=== PATIENT | male | born 2000 | race Caucasian/White ===

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

== ENCOUNTER 2019-06-15 08:44 | Emergency (ER) | payer OTHER ==
[~2019-06-15] VITALS: Ht 167.6 cm; Wt 84.2 kg
[~2019-06-15 08:44] MED LIST: BENT10CA PO; ZOFR4TAB14 PO
[2019-06-15 09:48] LABS: INFLUENZA A AMPLIFICATION NEGATIVE (NEGATIVE); INFLUENZA B AMPLIFICATION NEGATIVE (NEGATIVE)
[2019-06-15] MEDS ORDERED: ONDANSETRON 4 MG ORAL DISINTEGRATING TAB (Q0162 PER 1MG) PO ONE (11:15)
[2019-06-15 12:13] VITALS: BP 108/69
[2019-06-15] MEDS ORDERED: ONDA4TAB6 PO (12:20)
== END 2019-06-15 12:31 | disposition home or self-care (01) ==
LOC: M ED 08:44
DX: R11.2 Nausea with vomiting, unspecified (principal); R19.7 Diarrhea, unspecified; F17.218 Nicotine dependence, cigarettes, with other nicotine-induced disorders
CPT/HCPCS: 87502; 99283; Q0162

== ENCOUNTER 2019-06-20 12:02 | Inpatient (IN) | payer OTHER ==
[~2019-06-20] VITALS: Ht 167.6 cm; Wt 78.2 kg
[~2019-06-20 12:02] MED LIST changes: +ONDA4TAB6 PO
[2019-06-20] MEDS ORDERED: IBUPROFEN 600 MG TAB PO ONE (12:45)
[2019-06-20 13:05] LABS: INFLUENZA A AMPLIFICATION NEGATIVE (NEGATIVE); INFLUENZA B AMPLIFICATION NEGATIVE (NEGATIVE)
[2019-06-20] MEDS ORDERED: NS 1,000 ML IV ONE (13:30)
[2019-06-20 13:41] LABS: BASO # 0.1 10^3/uL (0.0-0.2); BASO % 0.2 % (0.0-1.0); HEMATOCRIT 44.9 % (42.0-52.0); LYMPH # 0.7 10^3/uL (1.5-5.0); LYMPH % 2.3 % (24.0-44.0); MEAN CORPUSCULAR HEMOGLOBIN 29.3 pg (27.0-33.0); MEAN CORPUSCULAR HGB CONC 35.6 g/dl (32.0-36.5); MEAN CORPUSCULAR VOLUME 82.2 fl (80.0-96.0); MONO # 0.6 10^3/uL (0.0-0.8); NEUTROPHILS % 94.8 % (36.0-66.0); PLATELET COUNT, AUTOMATED 268 10^3/uL (150-450); RED BLOOD COUNT 5.46 10^6/uL (4.30-6.10); WHITE BLOOD COUNT 29.6 10^3/uL (4.0-10.0)
--- NOTE | 2019-06-20 13:42 | REP ---
Clinical: Cough and shortness of breath. Technique: PA and lateral. Comparison: 11/22/2017. Findings: Diffuse bilateral infiltrates compatible with multifocal pneumonia. Mediastinum and cardiac silhouette normal. No effusion. No pneumothorax. Skeletal structures intact. Impression: Multifocal pneumonia. Electronically Signed by Deandre Fisher MD 06/20/2019 01:33 P
[2019-06-20 14:02] LABS: BLOOD UREA NITROGEN 11 MG/DL (7-18); CALCIUM LEVEL 9.6 MG/DL (8.5-10.1); CARBON DIOXIDE LEVEL 24 MEQ/L (21-32); CHLORIDE LEVEL 99 MEQ/L (98-107); CREATININE FOR GFR 1.03 MG/DL (0.70-1.30); GLUCOSE, FASTING 93 MG/DL (70-100); POTASSIUM SERUM 3.7 MEQ/L (3.5-5.1); SODIUM LEVEL 133 MEQ/L (136-145)
[2019-06-20 14:13] LABS: MONO SCRN NEGATIVE (NEGATIVE)
[2019-06-20] MEDS ORDERED: LevoFLOXacin IV 750 MG in IV 1 EA IV ONE (15:30)
[2019-06-20] MEDS: ACETAMINOPHEN TAB 650MG DOSE (2X325MG) PO PRN (16:53)
--- NOTE | 2019-06-20 17:05 | HPEPDOC ---
General Date of Admission 06/20/2019 Date of Service: Jun 20, 2019 Attending Physician: TY MCCAULEY MD Chief Complaint The patient is a 18-year-old male admitted with a reason for visit of Cold Symptoms. Source: Patient, Family Exam Limitations: No limitations Timing/Duration: 24 hours (fever), Day(s) (SOB, congestion, FARLEY, cough) Severity: Severe Associated Symptoms: Cough, Diaphoresis, Fever, Chills, Headaches, Loss of appetite, Nausea, Vomiting, Shortness of breath History of Present Illness 18 yo active member of the , young man, with no significant past medical history except being a smoker, who presents with up to 1 week symptoms of initial cough, rhinorrhea, sore throat and congestions, with progressive muscle aches, and most recently FARLEY and SOB at rest and this morning woke up drenched with edgar fever, chills and headache and developed nausea and emesis prompting him to present to the ED. In the ED he arrive normotensive but with a fever to 101.8 and tachycardia to 136 while visibly flushed, diaphoretic, dsypneic with tachypnea. He was hypoxemic to mid 80s on room air and was placed on 2L NC. Studies were notable f or leukocytosis to 29.6, Hgb 16, HCt 44.9, Na 133, Cr 1.03, negative flu, monospot and respiratory viral panel, while a CXR showed multifocal PNA. His history is negative for recent travel, last training was in [place] months ago but otherwise does spend significant time outdoors. He was given 1L NS, ibuprofen and later tylenol for his fever and blood cultures were drawn before he was given empiric levaquin. Home Medications No Active Prescriptions or Reported Meds Allergies Coded Allergies: No Known Allergies (Unverified , 06/15/19) Past Medical History Medical History Smoking Surgical History None Family History Significant Family History: No pertinent family hx Social History * Smoker: Denies, current smoker Alcohol: Denies Drugs: denies Recent Travel/Sick Contacts: Denies: Recent travel, Recent sick contacts Psychosocial History: No pertinent psych hx A-FIB/CHADSVASC A-FIB History Current/History of A-Fib/PAF?: No Current PO Anticoag Therapy: No Age/Risk Factor Scoring CHADSVASC: CHADSVASC Response (Comments) Value Age Risk Factor Age < 65 years old 0 Gender Risk Factor Male 0 Hx of CHF No 0 Hx of HTN No 0 Hx of Stroke/TIA/or VTE No 0 Hx of Diabetes No 0 Hx of Vascular Disease No 0 Total 0 Treatment Treatment ordered: NONE Reason Anticoagulant not given: Not indicated/[id number] Review of Systems Constitutional: Reports: Chills, Fever, Malaise Eyes: Denies: Pain, Vision change ENT: Denies: Head Aches, Ear Pain, Dysphagia Skin: Denies: Rash, Lesions, Breakdown Pulmonary: Reports: Dyspnea, Cough; Denies: Pleuritic Chest Pain Cardiovascular: Denies: Chest Pain, Palpitations, Orthopnea, Paroxysmal Noc. Dyspnea, Lt Headedness Gastrointestinal: Reports: Nausea, Vomiting, Diarrhea; Denies: Abdominal Pain, Constipation, Melena, Hematochezia Genitourinary: Denies: Dysuria, Frequency, Incontinence, Retention Hematologic: Denies: Bruising, Bleeding Excessively Endocrine: Denies: Polydipsia, Polyphagia, Polyuria, Heat Intolerance, Cold Intolerance, Other Endocrine Sx Musculoskeletal: Denies: Neck Pain, Back Pain, Joint Pain, Muscle Pain, Spasms Neurological: Denies: Weakness, Numbness, Change in speech, Confusion Psych: Reports: Mood Normal; Denies: Depression, Memory Issues Physical Examination General Exam: Positive: Alert, Cooperative, Moderate Distress, Other (Looks flushed and acutely ill) Eye Exam: Positive: PERRLA, Conjunctiva & lids normal, EOMI; Negative: Sclera icteric ENT Exam: Positive: Atraumatic, Mucous membr. moist/pink, Pharynx Normal Neck Exam: Positive: Supple; Negative: JVD, thyromegaly Chest Exam: Positive: Clear to auscultation, Normal air movement, Other (significantly tachypneic) Heart Exam: Positive: Tachycardic, Normal S1, Normal S2; Negative: Gallops, Murmurs, Rubs Telemetry: Positive: Sinus, Tachycardia Abdomen Exam: Positive: Normal bowel sounds, Soft; Negative: Tenderness, Hepatospenomegaly Extremity Exam: Positive: Normal pulses; Negative: Clubbing, Cyanosis, Edema Skin Exam: Positive: Nl turgor and temperature, Other skin issue (flushed, drenching in sweat); Negative: Breakdown, Lesion Neuro Exam: Positive: Normal Speech, Strength at 5/5 X4 ext, Cranial Nerves 3- 12 NL Psych Exam: Positive: Mental status NL, Mood NL, Oriented x 3 Vital Signs Vital Signs Date Time Temp Pulse Resp B/P (MAP) Pulse Ox O2 Delivery O2 Flow Rate FiO2 06/20/19 15:45 101 22 94 Nasal Cannula 2.0 06/20/19 15:30 129/59 (82) 06/20/19 14:06 100.9 Laboratory Data Labs 24H Laboratory Tests 2 06/20/19 12:30: Influenza Type A (RT-PCR) NEGATIVE, Influenza Type B (RT-PCR) NEGATIVE 06/20/19 13:28: Immature Granulocyte % (Auto) 0.7, Neutrophils (%) (Auto) 94.8H, Lymphocytes (%) (Auto) 2.3L, Monocytes (%) (Auto) 2.0, Eosinophils (%) (Auto) 0.0, Basophils (%) (Auto) 0.2, Neutrophils # (Auto) 28.0H, Lymphocytes # (Auto) 0.7L, Monocytes # (Auto) 0.6, Eosinophils # (Auto) 0.0, Basophils # (Auto) 0.1, Nucleated Red Blood Cells % (auto) 0.0, Anion Gap 10, Calcium Level 9.6, Monoscreen NEGATIVE 06/20/19 14:50: POC Lactate (Misc Panel) 1.25 CBC/BMP Laboratory Tests 06/20/19 13:28 Microbiology Microbiology 06/20/19 Blood Culture, Received Pending 06/20/19 Blood Culture, Received Pending 06/20/19 Group A Streptococcus Screen (RANJANA), Received Pending 06/20/19 Respiratory Virus Panel (PCR) (RANJANA) - Final, Complete Assessment/Plan 18 yo man whose medical history is only significant for active smoking, active member of the who presents with ~1 week of URI symptoms that progressed to incessant cough, myalgias, nausea, emesis, diarrhea, edgar fevers and shortness of breath and found to have multifocal PNA now placed on empiric levaquin. Sepsis 2/ multifocal PNA: with fever, leukocytosis, tachycardia, tachypnea, CXR with edgar PNA -continue empiric levaquin 750mg IV Q 24h -s/p 2L NS in the ED with improvement in tachycardia -supplemental O2 to goal 92% -q4hPRN duonebs for SOB or coughing -follow up BCx -sputum culture -urine for Strep and legionella -check mycoplasma as well -Incentive spirometry -daily CBC, BMP -tylenol for fever PRN -admit to PCU with severe sepsis Smoking: -cessation counselling -declined patch N/V/D: likely consequence of acute severe infection -monitor for now without abdominal pain with benign examination -if persistent will send acute diarrhea panel -zofran PRN for nausea DVT ppx: lovenox 40 QD Diet: regular Plan / VTE VTE Prophylaxis Ordered?: Yes TY MCCAULEY MD Jun 20, 2019 17:05
[2019-06-20] MEDS: IPRATROPIUM 0.5MG/ALBUTEROL 2.5MG INH SOL UD 3ML (DUONEB)(J7620) INH PRN ×2 (17:26→22:28)
[2019-06-20 20:00] VITALS: BP 144/74
[2019-06-21] VITALS (7 sets, daily range): BP systolic 119–132; BP diastolic 58–68; O2SAT 94–95
[2019-06-21] MEDS: ACETAMINOPHEN TAB 650MG DOSE (2X325MG) PO PRN ×4 (01:09→19:59)
[2019-06-21] MEDS: IPRATROPIUM 0.5MG/ALBUTEROL 2.5MG INH SOL UD 3ML (DUONEB)(J7620) INH PRN ×3 (02:40→19:59)
[2019-06-21 06:32] LABS: HEMATOCRIT 43.6 % (42.0-52.0); HEMOGLOBIN 15.1 g/dl (13.5-17.5); MEAN CORPUSCULAR HEMOGLOBIN 28.9 pg (27.0-33.0); MEAN CORPUSCULAR HGB CONC 34.6 g/dl (32.0-36.5); MEAN CORPUSCULAR VOLUME 83.4 fl (80.0-96.0); PLATELET COUNT, AUTOMATED 252 10^3/uL (150-450); RED BLOOD COUNT 5.23 10^6/uL (4.30-6.10); WHITE BLOOD COUNT 20.8 10^3/uL (4.0-10.0)
[2019-06-21] MEDS: ONDANSETRON 4MG/2ML VIAL (J2405) IV PRN (06:36)
[2019-06-21 06:51] LABS: BLOOD UREA NITROGEN 9 MG/DL (7-18); CALCIUM LEVEL 8.9 MG/DL (8.5-10.1); CARBON DIOXIDE LEVEL 26 MEQ/L (21-32); CHLORIDE LEVEL 102 MEQ/L (98-107); CREATININE FOR GFR 0.98 MG/DL (0.70-1.30); GLUCOSE, FASTING 97 MG/DL (70-100); MAGNESIUM LEVEL 1.8 MG/DL (1.8-2.4); POTASSIUM SERUM 3.6 MEQ/L (3.5-5.1); SODIUM LEVEL 136 MEQ/L (136-145)
[2019-06-21] MEDS: ENOXAPARIN 40 MG/0.4 ML SYRINGE (J1650) SC SCH (09:00)
[2019-06-21 09:18] LABS: ALBUMIN 3.3 GM/DL (3.2-5.2); ALT/SGPT 21 U/L (12-78); BILIRUBIN,DIRECT 0.5 MG/DL (0.0-0.2); BILIRUBIN,TOTAL 1.3 MG/DL (0.2-1.0); LIPASE 38 U/L (73-393); TOTAL PROTEIN 8.1 GM/DL (6.4-8.2)
--- NOTE | 2019-06-21 09:38 | PHACANCOPD ---
PHARMACY VANCOMYCIN DOSING Pt Demographics Demographics Patient Age:18 , Weight:80.400 , Gender: male Adjusted Body Weight Date: 06/21/19, Adjusted Body Weight: Kg Events Past 24 Hours Events Past 24 Hours: YES: Fever; NO: Dialysis, Diuretic Therapy, Change in CrCl, Elevation in WBC, Pending Diagnostics, Pending Procedures, Other Vancomycin Vancomycin indication: pneumonia with sepsis Vancomycin Target Ranges: 15-20 mcg/ml Vancomycin Load Y/N: Yes Load Dose Date Time Vancomycin Load Dose: 1000mg Date: 06/21 Time: 10:00 Vancomycin Dose Date: 06/21/19. Current Vancomycin Dose: [1g IV q8h @14] Intermittent Dosing?: No Labs Labs Item Value Date Time White Blood Count 29.6 10^3/uL H 06/20/19 1328 White Blood Count 20.8 10^3/uL H 06/21/19 0539 Creatinine 1.03 MG/DL 06/20/19 1328 Creatinine 0.98 MG/DL 06/21/19 0539 Vital Signs Label Value Date Time Patient Temperature 100.5 degrees F 06/21/19 0000 Temperature Source Oral 06/21/19 0000 Patient Temperature 100.6 degrees F 06/21/19 0749 Temperature Source Oral 06/21/19 0749 Micro Microbiology 06/20/19 Blood Culture, Received Pending 06/20/19 Blood Culture, Received Pending 06/20/19 Group A Streptococcus Screen (RANJANA), Received Pending 06/20/19 Respiratory Virus Panel (PCR) (RANJANA) - Final, Complete 06/20/19 Gram Stain - Final, Complete 06/20/19 Sputum Culture - Final, Complete Creatinine Clearance Date:06/21/19. Creatinine Clearance: [>100 ml/min]. Pending Labs Vanco trough scheduled 06/22 @13:00 Assessment and Plan Maintaining Current Dose?: Yes Reason for dose change: No Dose Change Pharmacist Note Pharmacist Note Date: 06/21/19. Pharmacist note: pt has been changed to Zosyn and Vancomycin for CAP with sepsis. He had previously received Levaquin IV 750mg x1 dose ~18 hours ago. Sputum culture is poor quality, C&S is pending. Blood cultures and strep screen are pending. He has a very limited medical hx at our facility. I have started him on vancomycin 1g at 10am, followed by 1g IV q8h dosing to begin ~4 hours later. I have a trough scheduled tomorrow afternoon. We will continue to monitor and make adjustments as necessary. Saad Key.D. Jun 21, 2019 09:38
--- NOTE | 2019-06-21 09:49 | REP ---
Clinical: Abdominal pain with nausea and vomiting. Sepsis. Technique: Axial noncontrast images from the lung bases to the pubic symphysis with coronal and sagittal re-formations. Findings: Lung bases demonstrate multifocal pneumonia. Liver, spleen, pancreas, gallbladder, bilateral adrenal glands and kidneys are normal. The enteric system is without obstruction or acute inflammatory process. Normal terminal ileum and appendix are identified in the right lower quadrant. Pelvis demonstrates normal bladder and age appropriate prostate/seminal vesicles. No ascites. No free air. No adenopathy. Abdominal aorta and without aneurysm. Musculoskeletal structures are intact. Impression: 1. Lung bases demonstrate multifocal pneumonia. 2. No acute abdominopelvic pathology appreciated. Electronically Signed by Deandre Fisher MD 06/21/2019 09:40 A
[2019-06-21] MEDS ORDERED: VANCOMYCIN HCL 1,000 MG, VIAL MATE ADAPTER 1 EACH in D5W 250 ML IV ONE (10:00)
[2019-06-21] MEDS: PIPERACILLIN/TAZOBACTAM SOD 3.375 GM in D5W MINI-BAG PLUS 50 ML IV SCH ×3 (10:02→20:23)
--- NOTE | 2019-06-21 11:53 | IPNPDOC ---
Text Note Date of Service The patient was seen on 06/21/19. NOTE Subjective: -continues to be febrile and defervesces with Tylenol -Persistent N/V with emesis this AM with some abdominal discomfort -Now on 4L from 2L Objective: General: continues to look acutely ill and is still flushed Eye: PERRLA, EOMI, anicteric ENT: MMM, clear posterior oropharynx without evidence of exudates Neck: Supple, no JVD or palpable thyromegaly Chest Exam: Moving air well, no wheezing, no edgar crackles still at this time, tachypneic speaking in short sentences Heart Exam: Tachycardic, regular rhythm, no murmurs Telemetry: Sinus, Tachycardia Abdomen Exam: Normal bowel sounds, Soft, mild RUQ TTP, no hepatosplenomegaly Extremities: WWP, no edema Skin Exam: Diaphoretic Nl turgor, no rashes, no erythema or lesions Neuro Exam: Normal Speech, Strength at 5/5 X4 ext, Cranial Nerves 3-12 NL Psych Exam: Oriented x 3 labs: WBC downtrended to 20.8. BMP wnl. Lipase is 38, LFTs are wnl. Reviewed Assessment: 18 yo man whose medical history is only significant for active smoking, active member of the who presented with ~1 week of URI symptoms that progressed to incessant cough, myalgias, nausea, emesis, diarrhea, edgar fevers and shortness of breath and found to have multifocal PNA now placed on empiric van/zosyn with pending blood and sputum cultures. Sepsis 2/2 multifocal PNA: with fever, leukocytosis, tachycardia, tachypnea, CXR with edgar PNA -switched to vanc/piptazo this AM after sputum showed varied organisms including GPCs in clusters, MRSA PCR ordered -supplemental O2 to goal 92% -q4hPRN duonebs for SOB or coughing -follow up BCx -follow up sputum culture -follow up urine for Strep and legionella -follow up mycoplasma as well -Incentive spirometry -daily CBC, BMP -tylenol for fever PRN Smoking: -cessation counselling -declined patch N/V/D: likely consequence of acute severe infection -monitor for now without abdominal pain with benign examination -No diarrhea -zofran PRN for nausea -s/p CT A/P without edgar abdominal pathology, lipase and LFTs wnl DVT ppx: lovenox 40 QD Diet: regular VS,Fishbone, I+O VS, Fishbone, I+O Laboratory Tests 06/20/19 13:28 06/21/19 05:39 Vital Signs Date Time Temp Pulse Resp B/P (MAP) Pulse Ox O2 Delivery O2 Flow Rate FiO2 06/21/19 07:49 100.6 06/21/19 04:00 104 20 121/58 (79) 92 Nasal Cannula 2.1 I&O- Last 24 Hours up to 6 AM 06/21/19 06:00 Intake Total 1690 ml Output Total 300 ml Balance 1390 ml TY MCCAULEY MD Jun 21, 2019 11:53
[2019-06-21] MEDS ORDERED: LevoFLOXacin IV 750 MG in IV 1 EA IV SCH (12:00)
[2019-06-21] MEDS: VANCOMYCIN HCL 1,000 MG, VIAL MATE ADAPTER 1 EACH in D5W 250 ML IV SCH ×2 (13:42→22:15)
[2019-06-21] MEDS ORDERED: SLF 3 ML SYR IV PRN (15:15)
[2019-06-21] MEDS: guaiFENesin 200 MG TAB PO SCH ×2 (16:35→20:23)
[2019-06-21] MEDS: SLF 3 ML SYR IV SCH (20:24)
[2019-06-21] MEDS: IPRATROPIUM 0.5MG/ALBUTEROL 2.5MG INH SOL UD 3ML (DUONEB)(J7620) INH SCH (23:28)
[2019-06-22] VITALS (25 sets, daily range): BP systolic 122–137; BP diastolic 55–88; O2SAT 91–99
[2019-06-22] MEDS: PIPERACILLIN/TAZOBACTAM SOD 3.375 GM in D5W MINI-BAG PLUS 50 ML IV SCH ×4 (02:16→20:41)
[2019-06-22] MEDS: ACETAMINOPHEN TAB 650MG DOSE (2X325MG) PO PRN ×3 (02:17→20:42)
[2019-06-22] MEDS: guaiFENesin 200 MG TAB PO SCH ×4 (02:17→20:42)
[2019-06-22] MEDS: ONDANSETRON 4MG/2ML VIAL (J2405) IV PRN (02:17)
[2019-06-22] MEDS: IPRATROPIUM 0.5MG/ALBUTEROL 2.5MG INH SOL UD 3ML (DUONEB)(J7620) INH SCH ×6 (03:39→23:15)
[2019-06-22] MEDS ORDERED: ISOVUE-370 76% 100ML VIAL (Q9967) As Ordered ONE (04:45)
[2019-06-22] MEDS: VANCOMYCIN HCL 1,000 MG, VIAL MATE ADAPTER 1 EACH in D5W 250 ML IV SCH (05:15)
[2019-06-22] MEDS: SLF 3 ML SYR IV SCH ×3 (05:16→20:42)
--- NOTE | 2019-06-22 05:42 | REPVR ---
PROCEDURE INFORMATION: Exam: CT Angiography Chest With Contrast Exam date and time: 06/22/2019 4:57 AM Age: 18 years old Clinical indication: Other: Desat TECHNIQUE: Imaging protocol: Computed tomographic angiography of the chest with intravenous contrast. 3D rendering: MIP and/or 3D reconstructed images were created by the technologist. Radiation optimization: All CT scans at this facility use at least one of these dose optimization techniques: automated exposure control; mA and/or kV adjustment per patient size (includes targeted exams where dose is matched to clinical indication); or iterative reconstruction. Contrast material: ISOVUE 370; Contrast volume: 100 ml; Contrast route: IV; COMPARISON: CR Chest, 2 view PA, Lat 2019-06-20 13:26 FINDINGS: Pulmonary arteries: No filling defects in the pulmonary arteries to suggest pulmonary emboli. Aorta: Unremarkable. No aortic aneurysm. No aortic dissection. Lungs: Diffuse mixed ground-glass and consolidative airspace opacities and interlobular septal thickening within the lungs. Pleural space: Unremarkable. No pneumothorax. No pleural effusion. Heart: Unremarkable. No cardiomegaly. No pericardial effusion. Liver: Enlarged low attenuating liver, evidence of hepatic steatosis. Lymph nodes: Mild mediastinal adenopathy with lymph nodes measuring to 1.2 cm short axis. Subcarinal and hilar adenopathy. Bones/joints: Unremarkable. No acute fracture. Soft tissues: Unremarkable. IMPRESSION: 1. Moderate to severe diffuse lung opacities. 2. No filling defects in the pulmonary arteries to suggest pulmonary emboli. Electronically signed by: Herbie Villatoro On 06/22/2019 05:42:06 AM
[2019-06-22 05:43] LABS: HEMATOCRIT 38.4 % (42.0-52.0); HEMOGLOBIN 13.3 g/dl (13.5-17.5); MEAN CORPUSCULAR HEMOGLOBIN 28.8 pg (27.0-33.0); MEAN CORPUSCULAR HGB CONC 34.6 g/dl (32.0-36.5); MEAN CORPUSCULAR VOLUME 83.1 fl (80.0-96.0); PLATELET COUNT, AUTOMATED 269 10^3/uL (150-450); RED BLOOD COUNT 4.62 10^6/uL (4.30-6.10); WHITE BLOOD COUNT 18.7 10^3/uL (4.0-10.0)
[2019-06-22 06:02] LABS: BLOOD UREA NITROGEN 9 MG/DL (7-18); CALCIUM LEVEL 8.7 MG/DL (8.5-10.1); CARBON DIOXIDE LEVEL 28 MEQ/L (21-32); CHLORIDE LEVEL 99 MEQ/L (98-107); CREATININE FOR GFR 0.96 MG/DL (0.70-1.30); GLUCOSE, FASTING 104 MG/DL (70-100); POTASSIUM SERUM 3.3 MEQ/L (3.5-5.1); SODIUM LEVEL 132 MEQ/L (136-145)
[2019-06-22] MEDS: IBUPROFEN 400 MG TAB PO PRN ×3 (08:19→23:31)
[2019-06-22] MEDS: ENOXAPARIN 40 MG/0.4 ML SYRINGE (J1650) SC SCH (09:49)
[2019-06-22] MEDS: methylPREDNISolone INJ 125 MG/2 ML VIAL (J2930) IV SCH ×3 (11:17→22:26)
[2019-06-22 12:59] LABS: APPEARANCE, URINE CLEAR (CLEAR); BACTERIA, URINE AUTO NEGATIVE (NEGATIVE); BILIRUBIN, URINE AUTO NEGATIVE (NEGATIVE); BLOOD, URINE BLOOD NEGATIVE (NEGATIVE); COLOR, URINE YELLOW (YELLOW); GLUCOSE, URINE (UA) AUTO NEGATIVE (NEGATIVE); KETONE, URINE AUTO 1+ mg/dL (NEGATIVE); LEUKOCYTE ESTERASE, URINE AUTO NEGATIVE (NEGATIVE); NITRITE, URINE AUTO NEGATIVE (NEGATIVE); PROTEIN, URINE AUTO 1+ mg/dL (NEGATIVE); RBC, URINE AUTO 1 /HPF (0-3); SQUAMOUS EPITHELIAL CELL UR AU 0 /HPF (0-6); WBC, URINE AUTO 3 /HPF (0-3)
[2019-06-22 13:10] LABS: SPECIFIC GRAVITY URINE AUTO >1.060 (1.002-1.035)
--- NOTE | 2019-06-22 14:49 | IPNPDOC ---
Text Note Date of Service The patient was seen on 06/22/19. NOTE Subjective: -continues to be febrile and defervesces with Tylenol/ibuprofen -had worsening hypoxemia overnight requiring NRB and this morning was on 15L. Had been refusing lovenox shots so had CTA that was negative for PE and showed the multifocal PNA. Objective: General:Looks very ill, flushed, diaphoretic, tachypneic Eye: PERRLA, EOMI, anicteric ENT: MMM, clear posterior oropharynx without evidence of exudates Neck: Supple, no JVD or palpable thyromegaly Chest Exam: Tachypneic, not able to speak in full sentences, diminished bases, upper posterior forbes with fair air movement, no edgar crackles at this time Heart Exam: Tachycardic, regular rhythm, no murmurs Telemetry: Sinus, Tachycardia Abdomen Exam: Normal bowel sounds, Soft, mild RUQ TTP, no hepatosplenomegaly Extremities: WWP, no edema Skin Exam: Diaphoretic Nl turgor, no rashes, no erythema or lesions Neuro Exam: Normal Speech, Strength at 5/5 X4 ext, Cranial Nerves 3-12 NL Psych Exam: Oriented x 3 labs: WBC downtrended to 18.7. BMP wnl. Reviewed BCx negative to date Imaging: CXR with multifocal PNA, CTA PE protocol - with no PE and diffuse multifocal GGOs Assessment: 18 yo man whose medical history is only significant for active smoking and vaping, active member of the who presented with ~1 week of URI symptoms that progressed to incessant cough, myalgias, nausea, emesis, diarrhea, edgar fevers and shortness of breath and found to have multifocal PNA now placed on empiric zosyn with pending blood and sputum cultures. Sepsis 2/2 multifocal PNA, with a history of vaping and smoking: with fever, leukocytosis, tachycardia, tachypnea, imaging with edgar PNA -cont piptazo, sputum showed varied organisms, MRSA PCR negative -supplemental O2 to goal 92% -q4hPRN duonebs for SOB or coughing -follow up BCx -follow up sputum culture -follow up urine for Strep and legionella -follow up mycoplasma as well -Incentive spirometry -daily CBC, BMP -tylenol/NSAID for fever PRN -Discussed with Dr. Alcocer (pulm) who suspected this is likely vaping related and recommended adding 80Q6 IV solumedrol given respiratory distress and severe hypoxemia Smoking: -cessation counselling -declined patch N/V/D: likely consequence of acute severe infection -monitor for now without abdominal pain with benign examination -No diarrhea -zofran PRN for nausea -s/p CT A/P without edgar abdominal pathology, lipase and LFTs were wnl DVT ppx: lovenox 40 QD Diet: regular VS,Fishbone, I+O VS, Fishbone, I+O Laboratory Tests 06/22/19 05:15 Vital Signs Date Time Temp Pulse Resp B/P (MAP) Pulse Ox O2 Delivery O2 Flow Rate FiO2 06/22/19 12:00 98.8 93 22 124/61 (82) 97 Nasal Cannula 15.0 I&O- Last 24 Hours up to 6 AM 06/22/19 06:00 Intake Total 1270 ml Output Total 1750 ml Balance -480 ml TY MCCAULEY MD Jun 22, 2019 14:49
[2019-06-22] MEDS ORDERED: POTASSIUM CHLORIDE 10 MEQ SR TABLET PO ONE (15:00)
[2019-06-23] VITALS (24 sets, daily range): BP systolic 130–142; BP diastolic 60–76; O2SAT 76–97
[2019-06-23] MEDS: guaiFENesin 200 MG TAB PO SCH ×4 (02:52→20:15)
[2019-06-23] MEDS: PIPERACILLIN/TAZOBACTAM SOD 3.375 GM in D5W MINI-BAG PLUS 50 ML IV SCH ×4 (02:52→20:15)
[2019-06-23] MEDS: IPRATROPIUM 0.5MG/ALBUTEROL 2.5MG INH SOL UD 3ML (DUONEB)(J7620) INH SCH ×6 (02:58→23:52)
[2019-06-23] MEDS: methylPREDNISolone INJ 125 MG/2 ML VIAL (J2930) IV SCH ×4 (04:19→23:20)
[2019-06-23] MEDS: SLF 3 ML SYR IV SCH ×3 (04:20→20:15)
[2019-06-23 05:38] LABS: HEMATOCRIT 40.4 % (42.0-52.0); HEMOGLOBIN 14.1 g/dl (13.5-17.5); MEAN CORPUSCULAR HEMOGLOBIN 29.1 pg (27.0-33.0); MEAN CORPUSCULAR HGB CONC 34.9 g/dl (32.0-36.5); MEAN CORPUSCULAR VOLUME 83.5 fl (80.0-96.0); PLATELET COUNT, AUTOMATED 328 10^3/uL (150-450); RED BLOOD COUNT 4.84 10^6/uL (4.30-6.10)
[2019-06-23 05:57] LABS: BLOOD UREA NITROGEN 16 MG/DL (7-18); CALCIUM LEVEL 9.7 MG/DL (8.5-10.1); CARBON DIOXIDE LEVEL 31 MEQ/L (21-32); CHLORIDE LEVEL 103 MEQ/L (98-107); CREATININE FOR GFR 0.89 MG/DL (0.70-1.30); GLUCOSE, FASTING 144 MG/DL (70-100); POTASSIUM SERUM 3.8 MEQ/L (3.5-5.1); SODIUM LEVEL 138 MEQ/L (136-145)
[2019-06-23] MEDS: ENOXAPARIN 40 MG/0.4 ML SYRINGE (J1650) SC SCH (08:22)
[2019-06-23] MEDS: ACETAMINOPHEN TAB 650MG DOSE (2X325MG) PO PRN ×3 (08:34→20:15)
[2019-06-23] MEDS: IBUPROFEN 400 MG TAB PO PRN ×3 (08:34→15:33)
[2019-06-24] VITALS (25 sets, daily range): BP systolic 130–183; BP diastolic 68–82; O2SAT 87–98
--- NOTE | 2019-06-24 01:22 | IPNPDOC ---
Text Note Date of Service The patient was seen on 06/23/19. NOTE Subjective: -Last fever was yesterday morning at 10AM, continues to feel poorly however -Stable severe hypoxemia on 15L. Objective: General:Looks very ill, flushed, diaphoretic, tachypneic Eye: PERRLA, EOMI, anicteric ENT: MMM, clear posterior oropharynx without evidence of exudates Neck: Supple, no JVD or palpable thyromegaly Chest Exam: Tachypneic, still not able to speak in full sentences, diminished bases, upper posterior forbes with fair air movement, continues to have no edgar crackles at this time Heart Exam: Tachycardic, regular rhythm, no murmurs Telemetry: Sinus, Tachycardia Abdomen Exam: Normal bowel sounds, Soft, mild RUQ TTP, no hepatosplenomegaly Extremities: WWP, no edema Skin Exam: Diaphoretic Nl turgor, no rashes, no erythema or lesions Neuro Exam: Normal Speech, Strength at 5/5 X4 ext, Cranial Nerves 3-12 NL Psych Exam: Oriented x 3 labs: WBC downtrended to 17. BMP wnl. Reviewed BCx negative, sputum with mixed asmita, MRSA negative Imaging: CXR with multifocal PNA, CTA PE protocol - with no PE and diffuse multifocal GGOs Assessment: 18 yo man whose medical history is only significant for active smoking and vaping, active member of the who presented with ~1 week of URI symptoms that progressed to incessant cough, myalgias, nausea, emesis, diarrhea, edgar fevers and shortness of breath and found to have multifocal PNA now placed on empiric zosyn with negative blood and sputum with mixed asmita per gram stain, now placed on steroids for severe hypoxemia and PNA with c/f vaping related PNA and respiratory failure. Sepsis 2/2 multifocal PNA, with a history of vaping and smoking: with fever, leukocytosis, tachycardia, tachypnea, imaging with edgar PNA -cont piptazo, sputum gramstain showed varied organisms, MRSA PCR negative -supplemental O2 to goal 92% -q4hPRN duonebs for SOB or coughing -follow up BCx -follow up sputum culture -follow up urine for Strep and legionella -follow up mycoplasma as well -Incentive spirometry -daily CBC, BMP -tylenol/NSAID for fever PRN -Discussed with Dr. Alcocer (pulm) who suspected this is likely vaping related and recommended adding 80Q6 IV solumedrol given respiratory distress and severe hypoxemia, so these were started on 06/22. Smoking: -cessation counselling -declined patch N/V/D: likely consequence of acute severe infection -monitor for now without abdominal pain with benign examination -No diarrhea -zofran PRN for nausea -s/p CT A/P without edgar abdominal pathology, lipase and LFTs were wnl DVT ppx: lovenox 40 QD Diet: regular VS,Fishbone, I+O VS, Fishbone, I+O Laboratory Tests 06/23/19 05:21 Vital Signs Date Time Temp Pulse Resp B/P (MAP) Pulse Ox O2 Delivery O2 Flow Rate FiO2 06/23/19 06:00 97 Nasal Cannula 15.0 06/23/19 04:00 97.8 79 19 142/73 (96) I&O- Last 24 Hours up to 6 AM 06/23/19 06:00 Intake Total 950 ml Output Total 950 ml Balance 0 ml TY MCCAULEY MD Jun 23, 2019 08:01
[2019-06-24] MEDS: guaiFENesin 200 MG TAB PO SCH ×4 (03:17→21:30)
[2019-06-24] MEDS: PIPERACILLIN/TAZOBACTAM SOD 3.375 GM in D5W MINI-BAG PLUS 50 ML IV SCH ×4 (03:17→21:29)
[2019-06-24] MEDS: ACETAMINOPHEN TAB 650MG DOSE (2X325MG) PO PRN ×3 (03:30→19:40)
[2019-06-24] MEDS: IPRATROPIUM 0.5MG/ALBUTEROL 2.5MG INH SOL UD 3ML (DUONEB)(J7620) INH SCH ×6 (03:56→23:55)
[2019-06-24] MEDS: methylPREDNISolone INJ 125 MG/2 ML VIAL (J2930) IV SCH ×4 (04:27→22:41)
[2019-06-24] MEDS: SLF 3 ML SYR IV SCH ×3 (04:28→21:29)
[2019-06-24 07:32] LABS: HEMATOCRIT 41.6 % (42.0-52.0); HEMOGLOBIN 13.9 g/dl (13.5-17.5); MEAN CORPUSCULAR HEMOGLOBIN 28.7 pg (27.0-33.0); MEAN CORPUSCULAR HGB CONC 33.4 g/dl (32.0-36.5); MEAN CORPUSCULAR VOLUME 85.8 fl (80.0-96.0); PLATELET COUNT, AUTOMATED 403 10^3/uL (150-450); RED BLOOD COUNT 4.85 10^6/uL (4.30-6.10); WHITE BLOOD COUNT 25.6 10^3/uL (4.0-10.0)
[2019-06-24 07:50] LABS: BLOOD UREA NITROGEN 17 MG/DL (7-18); CALCIUM LEVEL 9.5 MG/DL (8.5-10.1); CARBON DIOXIDE LEVEL 33 MEQ/L (21-32); CHLORIDE LEVEL 102 MEQ/L (98-107); CREATININE FOR GFR 0.85 MG/DL (0.70-1.30); GLUCOSE, FASTING 149 MG/DL (70-100); POTASSIUM SERUM 3.7 MEQ/L (3.5-5.1); SODIUM LEVEL 136 MEQ/L (136-145)
[2019-06-24] MEDS: ENOXAPARIN 40 MG/0.4 ML SYRINGE (J1650) SC SCH (08:22)
[2019-06-24] MEDS: BENZONATATE 100 MG CAP PO SCH ×3 (13:08→21:30)
--- NOTE | 2019-06-24 18:03 | IPNPDOC ---
Text Note Date of Service The patient was seen on 06/24/19. NOTE Subjective: -Afebrile -Os requirement now coming down, now on 8L this afternoon -This morning reporting feeling better, had a good meal yesterday for the first time in a while, unfortunately still having a violent cough Objective: General:Looks very ill, flushed, diaphoretic, tachypneic Eye: PERRLA, EOMI, anicteric ENT: MMM, clear posterior oropharynx without evidence of exudates Neck: Supple, no JVD or palpable thyromegaly Chest Exam: Improved tachypnea, speaking in full sentences today, diminished bases, upper forbes with fair air movement, continues to have no edgar crackles Heart Exam: Tachycardic, regular rhythm, no murmurs Telemetry: Sinus, Tachycardia Abdomen Exam: Normal bowel sounds, Soft, mild RUQ TTP, no hepatosplenomegaly Extremities: WWP, no edema Skin Exam: Diaphoretic Nl turgor, no rashes, no erythema or lesions Neuro Exam: Normal Speech, Strength at 5/5 X4 ext, Cranial Nerves 3-12 NL Psych Exam: Oriented x 3 labs: WBC uptrended. BMP wnl. Reviewed BCx negative, sputum with mixed asmita per gram stain, MRSA negative Imaging: CXR with multifocal PNA, CTA PE protocol - with no PE and diffuse multifocal GGOs Assessment: 18 yo man whose medical history is only significant for active smoking and vaping, active member of the who presented with ~1 week of URI symptoms that progressed to incessant cough, myalgias, nausea, emesis, diarrhea, edgar fevers and shortness of breath and found to have multifocal PNA now placed on empiric zosyn with negative blood and sputum with mixed asmita per gram stain, now placed on steroids for severe hypoxemia and PNA with c/f vaping related PNA and respiratory failure now with slowly improving hypoxemia. Sepsis 2/2 multifocal PNA, with a history of vaping and smoking: with fever, leukocytosis, tachycardia, tachypnea, imaging with edgar PNA -cont piptazo, sputum gram stain showed varied organisms, MRSA PCR negative -supplemental O2 to goal 92% -q4hPRN duonebs for SOB or coughing -follow up BCx -follow up sputum culture -follow up urine for Strep and legionella -follow up mycoplasma as well -Incentive spirometry -daily CBC, BMP -tylenol/NSAID for fever PRN -Discussed with Dr. Alcocer (pulm) who suspected this is likely vaping related and recommended adding 80Q6 IV solumedrol given respiratory distress and severe hypoxemia, so these were started on 06/22. -Added tessalon perls for cough Smoking: -cessation counselling -declined patch N/V/D: likely consequence of acute severe infection -monitor for now without abdominal pain with benign examination -No diarrhea -zofran PRN for nausea -s/p CT A/P without edgar abdominal pathology, lipase and LFTs were wnl DVT ppx: lovenox 40 QD Diet: regular VS,Fishbone, I+O VS, Fishbone, I+O Laboratory Tests 06/24/19 07:19 Vital Signs Date Time Temp Pulse Resp B/P (MAP) Pulse Ox O2 Delivery O2 Flow Rate FiO2 06/24/19 16:00 97.9 107 18 183/79 (113) 95 Nasal Cannula 8.0 I&O- Last 24 Hours up to 6 AM 06/24/19 06:00 Intake Total 1700 ml Output Total 450 ml Balance 1250 ml TY MCCAULEY MD Jun 24, 2019 18:03
[2019-06-25] VITALS (25 sets, daily range): BP systolic 110–134; BP diastolic 61–81; O2SAT 92–99
[2019-06-25 00:08] LABS: BODY FLUID CULTURE Not indicated. (.); LEGIONELLA ANTIGEN URINE Negative (Negative); ORGANISM ID Not indicated. (.); SPECIMEN SOURCE Urine (.); URINE STREP PNEUMONIAE ANTIGEN Negative (Negative)
[2019-06-25 00:08] LABS: MYCOPLASMA PNEUMONIAE IgG 1581 U/mL (0-99); MYCOPLASMA PNEUMONIAE IgM 1206 U/mL (0-769)
[2019-06-25] MEDS: OMEPRAZOLE 20 MG CAP PO PRN (02:59)
[2019-06-25] MEDS: PIPERACILLIN/TAZOBACTAM SOD 3.375 GM in D5W MINI-BAG PLUS 50 ML IV SCH ×4 (02:59→21:04)
[2019-06-25] MEDS: guaiFENesin 200 MG TAB PO SCH ×4 (02:59→21:04)
[2019-06-25] MEDS: IPRATROPIUM 0.5MG/ALBUTEROL 2.5MG INH SOL UD 3ML (DUONEB)(J7620) INH SCH ×5 (04:13→20:56)
[2019-06-25] MEDS: methylPREDNISolone INJ 125 MG/2 ML VIAL (J2930) IV SCH ×4 (05:05→22:17)
[2019-06-25] MEDS: SLF 3 ML SYR IV SCH ×3 (05:05→21:04)
[2019-06-25] MEDS: GI COCKTAIL 50ML BTL(HYOSCYAMINE/MAALOX/LIDOCAINE VISCOUS)(1:3:1) PO PRN (05:20)
[2019-06-25 05:43] LABS: HEMATOCRIT 39.5 % (42.0-52.0); HEMOGLOBIN 13.3 g/dl (13.5-17.5); MEAN CORPUSCULAR HEMOGLOBIN 28.7 pg (27.0-33.0); MEAN CORPUSCULAR HGB CONC 33.7 g/dl (32.0-36.5); MEAN CORPUSCULAR VOLUME 85.3 fl (80.0-96.0); PLATELET COUNT, AUTOMATED 430 10^3/uL (150-450); RED BLOOD COUNT 4.63 10^6/uL (4.30-6.10); WHITE BLOOD COUNT 22.7 10^3/uL (4.0-10.0)
[2019-06-25 06:04] LABS: BLOOD UREA NITROGEN 17 MG/DL (7-18); CALCIUM LEVEL 8.6 MG/DL (8.5-10.1); CARBON DIOXIDE LEVEL 29 MEQ/L (21-32); CHLORIDE LEVEL 102 MEQ/L (98-107); CREATININE FOR GFR 0.92 MG/DL (0.70-1.30); GLUCOSE, FASTING 148 MG/DL (70-100); POTASSIUM SERUM 3.3 MEQ/L (3.5-5.1); SODIUM LEVEL 136 MEQ/L (136-145)
--- NOTE | 2019-06-25 09:00 | IPNPDOC ---
Text Note Date of Service The patient was seen on 06/25/19. NOTE Subjective: -Afebrile, down to 6L this morning! Feels better Objective: General: Looks much better, still flushed Eye: PERRLA, EOMI, anicteric ENT: MMM, clear posterior oropharynx without evidence of exudates Neck: Supple, no JVD or palpable thyromegaly Chest Exam: Speaking in full sentences today, diminished bases, upper forbes with fair air movement, continues to have no edgar crackles, no tachypnea this morning, normal breathing rate Heart Exam: Tachycardic, regular rhythm, no murmurs Telemetry: Sinus, Tachycardia Abdomen Exam: Normal bowel sounds, Soft, mild RUQ TTP, no hepatosplenomegaly Extremities: WWP, no edema Skin Exam: Flushed face, Nl turgor, no rashes, no erythema or lesions Neuro Exam: Normal Speech, Strength at 5/5 X4 ext, Cranial Nerves 3-12 NL Psych Exam: Oriented x 3 labs: WBC uptrended to 22.7. BMP wnl. Reviewed BCx negative, sputum with mixed asmita per gram stain, MRSA negative. MYCOPLASMA IgM and IgG positive Imaging: CXR with multifocal PNA, CTA PE protocol - with no PE and diffuse multifocal GGOs Assessment: 18 yo man whose medical history is only significant for active smoking and vaping, active member of the who presented with ~1 week of URI symptoms that progressed to incessant cough, myalgias, nausea, emesis, diarrhea, edgar fevers and shortness of breath and found to have multifocal PNA now placed on empiric zosyn with negative blood and sputum with mixed asmita per gram stain, now placed on steroids for severe hypoxemia and now confirmed mycoplasma PNA with c/f vaping related injury as well and respiratory failure now with improving hypoxemia. Sepsis 2/2 multifocal PNA, with a history of vaping and smoking: with fever, leukocytosis, tachycardia, tachypnea, imaging with edgar PNA. Now confirmed +mycoplasma with mixed asmita on sputum -cont piptazo, sputum gram stain showed varied organisms, MRSA PCR negative, +Mycoplasma -supplemental O2 to goal 92% -q4hPRN duonebs for SOB or coughing -BCx negative -sputum culture, stain showed mixed asmita -negative urine for Strep and legionella -Positive IgM and IgG mycoplasma -Incentive spirometry -daily CBC, BMP -tylenol/NSAID for fever PRN -Discussed with Dr. Alcocer (pulm) who suspected this is likely vaping related and recommended adding 80Q6 IV solumedrol given respiratory distress and severe hypoxemia, so these were started on 06/22. -Continue tessalon perls for cough Smoking: -cessation counselling -declined patch N/V/D: likely consequence of acute severe infection -monitor for now without abdominal pain with benign examination -No diarrhea -zofran PRN for nausea -s/p CT A/P without edgar abdominal pathology, lipase and LFTs were wnl DVT ppx: lovenox 40 QD Diet: regular VS,Fishbone, I+O VS, Fishbone, I+O Laboratory Tests 06/25/19 05:11 Vital Signs Date Time Temp Pulse Resp B/P (MAP) Pulse Ox O2 Delivery O2 Flow Rate FiO2 06/25/19 08:00 98.6 111 18 110/64 (79) 95 High Flow Cannula 6.0 I&O- Last 24 Hours up to 6 AM 06/25/19 06:00 Intake Total 2390 ml Output Total 1100 ml Balance 1290 ml TY MCCAULEY MD Jun 25, 2019 09:00
[2019-06-25] MEDS: BENZONATATE 100 MG CAP PO SCH ×3 (09:38→21:04)
[2019-06-25] MEDS: ENOXAPARIN 40 MG/0.4 ML SYRINGE (J1650) SC SCH (09:39)
[2019-06-25] MEDS: IBUPROFEN 400 MG TAB PO PRN (16:57)
[2019-06-26] VITALS (23 sets, daily range): BP systolic 128–143; BP diastolic 64–94; O2SAT 90–98
[2019-06-26] MEDS: IPRATROPIUM 0.5MG/ALBUTEROL 2.5MG INH SOL UD 3ML (DUONEB)(J7620) INH SCH ×7 (01:30→20:46)
[2019-06-26] MEDS: PIPERACILLIN/TAZOBACTAM SOD 3.375 GM in D5W MINI-BAG PLUS 50 ML IV SCH ×2 (03:52→08:38)
[2019-06-26] MEDS: guaiFENesin 200 MG TAB PO SCH ×4 (03:52→21:46)
[2019-06-26] MEDS: methylPREDNISolone INJ 125 MG/2 ML VIAL (J2930) IV SCH ×4 (05:06→21:48)
[2019-06-26] MEDS: SLF 3 ML SYR IV SCH ×3 (05:06→21:47)
[2019-06-26 05:14] LABS: HEMATOCRIT 39.7 % (42.0-52.0); HEMOGLOBIN 13.3 g/dl (13.5-17.5); MEAN CORPUSCULAR HEMOGLOBIN 28.5 pg (27.0-33.0); MEAN CORPUSCULAR HGB CONC 33.5 g/dl (32.0-36.5); MEAN CORPUSCULAR VOLUME 85.2 fl (80.0-96.0); PLATELET COUNT, AUTOMATED 403 10^3/uL (150-450); RED BLOOD COUNT 4.66 10^6/uL (4.30-6.10)
[2019-06-26 05:20] LABS: ALT/SGPT 50 U/L (12-78); BILIRUBIN,TOTAL 0.5 MG/DL (0.2-1.0); BLOOD UREA NITROGEN 18 MG/DL (7-18); CALCIUM LEVEL 8.4 MG/DL (8.5-10.1); CARBON DIOXIDE LEVEL 28 MEQ/L (21-32); CHLORIDE LEVEL 102 MEQ/L (98-107); CREATININE FOR GFR 0.81 MG/DL (0.70-1.30); GLUCOSE, FASTING 135 MG/DL (70-100); MAGNESIUM LEVEL 2.1 MG/DL (1.8-2.4); POTASSIUM SERUM 4.2 MEQ/L (3.5-5.1); SODIUM LEVEL 136 MEQ/L (136-145); TOTAL PROTEIN 6.1 GM/DL (6.4-8.2)
[2019-06-26 05:24] LABS: CK-MB VALUE MASS < 1.0 NG/ML (<3.6); CPK CREATINE PHOSPHOKINASE 59 U/L (39-308); MB/CK RELATIVE INDEX 1.69 (< OR =4); THYROID STIMULATING HORMONE 0.452 uIU/ML (0.463-3.98); TROPONIN I < 0.02 NG/ML (< 0.10)
[2019-06-26 05:25] LABS: INR 1.14; PROTHROMBIN TIME 14.4 SECONDS (11.8-14.0)
[2019-06-26 05:26] LABS: PARTIAL THROMBOPLASTIN TIME 29.2 SECONDS (25.0-38.4)
--- NOTE | 2019-06-26 05:29 | REPVR ---
PROCEDURE INFORMATION: Exam: XR Chest, 2 Views Exam date and time: 06/26/19 (4:51am) Age: 18 years old Clinical indication: Atrial fibrillation TECHNIQUE: Imaging protocol: XR of the chest Views: 2 views COMPARISON: Chest films of 06/20/19 CTA CHEST of 06/22/19 FINDINGS: Lungs: Hazy lung forbes again seen, predominantly in the mid and lower lung zones. No significant improvement is evident. No consolidation. Pleural space: Unremarkable. No pleural effusions. No pneumothorax. Heart/Mediastinum: Unremarkable. No cardiomegaly. Bones/joints: Unremarkable. IMPRESSION: Persistent hazy lung opacities, predominantly in the mid and lower lung zones. A similar appearance was noted 5-6 days ago. Worrisome for bilateral multilobar pneumonia. Electronically signed by: Alea Lewis On 06/26/2019 05:29:08 AM
[2019-06-26] MEDS: BENZONATATE 100 MG CAP PO SCH ×3 (08:38→21:46)
[2019-06-26] MEDS: ENOXAPARIN 40 MG/0.4 ML SYRINGE (J1650) SC SCH (08:38)
--- NOTE | 2019-06-26 11:26 | ECGEPIP ---
[facility] Test Date: 2019-06-26 Pat Name: SERGIO HOGAN Department: Room: I6458-95 Gender: Male Molder: SHARON : 2000 Requested By: SAUNDRA MAZARIEGOS D.O. Order Number: [id number] Reading MD: Herbie Suarez Measurements Intervals [place] Rate: 91 P: MA: 0 QRS: 57 QRSD: 93 T: 37 QT: 375 QTc: 463 Interpretive Statements ATRIAL FIBRILLATION ABNORMAL RHYTHM ECG Rhythm change compared with 11/22/2017. Electronically Signed on 06-26-2019 11:26:32 EST by Herbie Suarez
--- NOTE | 2019-06-26 12:49 | IPNPDOC ---
Text Note Date of Service The patient was seen on 06/26/19. NOTE Subjective: -Afebrile, down to 3L this morning -Feels better, however overnight had a brief episode of asymptomatic Afib that spontaneously resolved. -Cough continues Objective: General: Looks better each day, still flushed Eye: PERRLA, EOMI, anicteric ENT: MMM, clear posterior oropharynx without evidence of exudates Neck: Supple, no JVD or palpable thyromegaly Chest Exam: Speaking in full sentences today, moving air well, bases are starting to have adequate movement, no tachypnea, normal breathing rate Heart Exam: Tachycardic, regular rhythm, no murmurs Telemetry: Sinus, Tachycardia Abdomen Exam: Normal bowel sounds, Soft, no abdominal pain, no hepatosplenomegaly Extremities: WWP, no edema Skin Exam: Flushed face and neck, Nl turgor, no rashes, no erythema or lesions Neuro Exam: Normal Speech, Strength at 5/5 X4 ext, Cranial Nerves 3-12 NL Psych Exam: Oriented x 3 labs: WBC downtrended to 18. BMP wnl, K 4.2, Mg 2.1. Reviewed BCx negative, sputum with mixed asmita per gram stain, MRSA negative. MYCOPLASMA IgM and IgG positive Imaging: CXR with multifocal PNA, CTA PE protocol - with no PE and diffuse multifocal GGOs Assessment: 18 yo man whose medical history is only significant for active smoking and vaping, active member of the who presented with ~1 week of URI symptoms that progressed to incessant cough, myalgias, nausea, emesis, diarrhea, edgar fevers and shortness of breath and found to have multifocal PNA now placed on empiric zosyn with negative blood and sputum with mixed asmita per gram stain, now placed on steroids for severe hypoxemia and now confirmed mycoplasma PNA with c/f vaping related injury as well and respiratory failure now with improving hypoxemia. Sepsis 2/2 multifocal PNA, with a history of vaping and smoking: with fever, leukocytosis, tachycardia, tachypnea, imaging with edgar PNA. Now confirmed +mycoplasma with mixed GPCs on sputum -Discontinue piptazo, sputum gram stain showed mixed GPCs, MRSA PCR negative, +Mycoplasma and start azithromycin that should cover Mycoplasma and the gram positives in the sputum -supplemental O2 to goal 92% -q4hPRN duonebs for SOB or coughing -BCx negative -sputum culture, stain showed mixed GPCs -negative urine for Strep and legionella -Positive IgM and IgG mycoplasma -Incentive spirometry -daily CBC, BMP -tylenol/NSAID for fever PRN -Discussed with Dr. Alcocer (pulm) who suspected this is likely vaping related and recommended adding 80Q6 IV solumedrol given respiratory distress and severe hypoxemia, so these were started on 06/22. -Continue tessalon perls for cough Transient Afib: In the setting of ongoing severe infection. No history of Afib. Spontaneously resolved back to sinus. -continue telemetry -follow up TTE ordered overnight Smoking: -cessation counselling -declined patch N/V/D: likely consequence of acute severe infection -monitor for now without abdominal pain with benign examination -No diarrhea -zofran PRN for nausea -s/p CT A/P without edgar abdominal pathology, lipase and LFTs were wnl DVT ppx: lovenox 40 QD Diet: regular VS,Fishbone, I+O VS, Fishbone, I+O Laboratory Tests 06/26/19 04:42 Vital Signs Date Time Temp Pulse Resp B/P (MAP) Pulse Ox O2 Delivery O2 Flow Rate FiO2 06/26/19 12:00 97.5 60 18 136/64 (88) 94 High Flow Cannula 2.0 I&O- Last 24 Hours up to 6 AM 06/26/19 06:00 Intake Total 1300 ml Output Total 1200 ml Balance 100 ml TY MCCAULEY MD Jun 26, 2019 12:49
[2019-06-26] MEDS: AZITHROMYCIN INJ 500 MG, VIAL MATE ADAPTER 1 EACH in D5W 250 ML IV SCH (13:54)
[2019-06-26] MEDS: ACETAMINOPHEN TAB 650MG DOSE (2X325MG) PO PRN (17:29)
[2019-06-27] VITALS (12 sets, daily range): BP systolic 124–152; BP diastolic 59–95; O2SAT 89–97
[2019-06-27] MEDS: guaiFENesin 200 MG TAB PO SCH ×4 (03:43→20:11)
[2019-06-27] MEDS: methylPREDNISolone INJ 125 MG/2 ML VIAL (J2930) IV SCH ×2 (05:59→10:48)
[2019-06-27] MEDS: ONDANSETRON 4MG/2ML VIAL (J2405) IV PRN ×2 (05:59→13:19)
[2019-06-27] MEDS: SLF 3 ML SYR IV SCH ×3 (05:59→21:46)
[2019-06-27] MEDS: GI COCKTAIL 50ML BTL(HYOSCYAMINE/MAALOX/LIDOCAINE VISCOUS)(1:3:1) PO PRN (06:34)
[2019-06-27] MEDS: IPRATROPIUM 0.5MG/ALBUTEROL 2.5MG INH SOL UD 3ML (DUONEB)(J7620) INH SCH ×5 (07:25→19:48)
[2019-06-27] MEDS: ENOXAPARIN 40 MG/0.4 ML SYRINGE (J1650) SC SCH (08:41)
[2019-06-27] MEDS: BENZONATATE 100 MG CAP PO SCH ×3 (08:41→20:11)
[2019-06-27 08:54] LABS: HEMATOCRIT 40.4 % (42.0-52.0); HEMOGLOBIN 13.8 g/dl (13.5-17.5); MEAN CORPUSCULAR HEMOGLOBIN 28.8 pg (27.0-33.0); MEAN CORPUSCULAR HGB CONC 34.2 g/dl (32.0-36.5); MEAN CORPUSCULAR VOLUME 84.2 fl (80.0-96.0); PLATELET COUNT, AUTOMATED 465 10^3/uL (150-450); WHITE BLOOD COUNT 19.2 10^3/uL (4.0-10.0)
[2019-06-27 09:13] LABS: BLOOD UREA NITROGEN 19 MG/DL (7-18); CALCIUM LEVEL 8.7 MG/DL (8.5-10.1); CARBON DIOXIDE LEVEL 25 MEQ/L (21-32); CHLORIDE LEVEL 104 MEQ/L (98-107); CREATININE FOR GFR 0.82 MG/DL (0.70-1.30); GLUCOSE, FASTING 112 MG/DL (70-100); MAGNESIUM LEVEL 2.3 MG/DL (1.8-2.4); POTASSIUM SERUM 4.2 MEQ/L (3.5-5.1); SODIUM LEVEL 137 MEQ/L (136-145)
[2019-06-27] MEDS ORDERED: PROMETHAZINE INJ 25 MG/ML VIAL (J2550) IV PRN (09:15)
[2019-06-27] MEDS: OMEPRAZOLE 20 MG CAP PO PRN (09:28)
[2019-06-27] MEDS: LACTOBACILLUS ACIDOPHILUS CAP (BACID) PO SCH ×2 (09:28→20:11)
--- NOTE | 2019-06-27 11:16 | IPNPDOC ---
Text Note Date of Service The patient was seen on 06/27/19. NOTE Subjective: -Afebrile, now on room air! -Feels better, however overnight had N/V/D -Cough improving Objective: General: Was miserable from the nausea this AM, flushed Eye: PERRLA, EOMI, anicteric ENT: MMM, clear posterior oropharynx without evidence of exudates Neck: Supple, no JVD or palpable thyromegaly Chest Exam: Speaking in full sentences today, moving air well, no tachypnea, normal breathing rate Heart Exam: regular rhythm and rate, no murmurs Telemetry: NSR Abdomen Exam: Normal bowel sounds, Soft, no abdominal pain, no hepatosplenomegaly Extremities: WWP, no edema Skin Exam: Flushed face and neck, Nl turgor, no rashes, no erythema or lesions Neuro Exam: Normal Speech, Strength at 5/5 X4 ext, Cranial Nerves 3-12 NL Psych Exam: Oriented x 3 labs: Reviewed. MYCOPLASMA IgM and IgG positive Imaging: CXR with multifocal PNA, CTA PE protocol - with no PE and diffuse multifocal GGOs Assessment: 18 yo man whose medical history is only significant for active smoking and vaping, active member of the who presented with ~1 week of URI symptoms that progressed to incessant cough, myalgias, nausea, emesis, diarrhea, edgar fevers and shortness of breath and found to have multifocal PNA now placed on empiric zosyn with negative blood and sputum with mixed asmita per gram stain, now placed on steroids for severe hypoxemia and now confirmed mycoplasma PNA with c/f vaping related injury as well and respiratory failure now with improving hypoxemia. Sepsis 2/2 multifocal PNA, with a history of vaping and smoking: with fever, leukocytosis, tachycardia, tachypnea, imaging with edgar PNA. Now confirmed +mycoplasma with mixed GPCs on sputum -Continue azithromycin for Mycoplasma PNA, sputum gram stain showed mixed GPCs, MRSA PCR negative -supplemental O2 to goal 92% if indicated, as of this morning, is on room air -q4hPRN duonebs for SOB or coughing -BCx negative -sputum culture, stain showed mixed GPCs -negative urine for Strep and legionella -Positive IgM and IgG mycoplasma -Incentive spirometry -daily CBC, BMP -tylenol/NSAID for fever PRN -Discussed with Dr. Alcocer (pulm) who suspected this is likely vaping related and recommended adding 80Q6 IV solumedrol given respiratory distress and severe hypoxemia, so these were started on 06/22. Now on pred 40 -Continue tessalon perls for cough -Discontinue cont pulse ox Transient Afib: In the setting of ongoing severe infection. No history of Afib. Spontaneously resolved back to sinus. -continue telemetry -follow up TTE Smoking: -cessation counselling -declined patch N/V/D: presented with and it briefly resolved but is now back -r/o Cdiff -zofran and promethazine PRN for nausea -s/p CT A/P without edgar abdominal pathology, lipase and LFTs were wnl -schedule his omeprazole DVT ppx: lovenox 40 QD Diet: regular VS,Fishbone, I+O VS, Fishbone, I+O Laboratory Tests 06/27/19 08:35 Vital Signs Date Time Temp Pulse Resp B/P (MAP) Pulse Ox O2 Delivery O2 Flow Rate FiO2 06/27/19 08:00 97.1 51 18 152/72 (98) 94 Room Air 06/27/19 07:50 2.0 I&O- Last 24 Hours up to 6 AM 06/27/19 05:59 Intake Total 1160 ml Output Total 1050 ml Balance 110 ml TY MCCAULEY MD Jun 27, 2019 11:16
[2019-06-27] MEDS: AZITHROMYCIN INJ 500 MG, VIAL MATE ADAPTER 1 EACH in D5W 250 ML IV SCH (13:19)
--- NOTE | 2019-06-27 13:29 | ECHO ---
DATE OF SERVICE: 06/26/2019 REFERRING PROVIDER: Dr. Faina Jerome REASON FOR STUDY: Abnormal EKGs. 2D MEASUREMENTS: IVS 1.0 cm LV 5.4 cm LVPW 1.1 cm LA 3.3 cm Aorta 2.9 cm IVC 1.7 cm DOPPLER MEASREMENTS: Peak velocity across the aortic valve: 1.7 m/s Peak velocity across the LVOT 1.1 m/s Peak gradient across the aortic valve 12 mmHg Mean gradient across the aortic valve 6 mmHg Mitral E: 1.2 Mitral A: 0.34 with a ratio of 3.4 2D COMMENTS: 1. Normal left ventricular size, wall thickness, and normal global left ventricular systolic function. There was a hyperdynamic left ventricle with an estimated left ventricular systolic ejection fraction of 65-70%. 2. Normal left atrium. Normal right atrium and right ventricle. 3. The atrial septum appeared to be normal without evidence of defect or shunt. 4. The aortic root appeared to be normal in size. 5. No pericardial effusion seen. 6. Minimally calcified aortic valve that appeared to be bicuspid in nature. No mitral valve, tricuspid valve, and pulmonic valve. The proximal pulmonary artery branches appear to be normal. 7. The inferior vena cava was normal in size, central venous pressure is most likely normal. DOPPLER: It detects mild aortic regurgitation, trace mitral regurgitation, trace tricuspid regurgitation, and trace pulmonic regurgitation. The pulmonary artery systolic pressure is most likely normal. Assessment of the ventricular diastolic function appeared to be normal. IMPRESSION: 1. Normal global left ventricular systolic and diastolic function. 2. Bicuspid aortic valve with mild aortic regurgitation and trivial aortic stenosis. The aortic root appeared to be normal in size. 3. Trace mitral regurgitation. 4. Trace tricuspid regurgitation and trace pulmonic regurgitation. 5. Global longitudinal strain/GLS was normal at 20.5%. 6. I recommend to repeat the echocardiogram in about a year. NAILAD
[2019-06-27] MEDS: PANTOPRAZOLE 40MG INJ (PROTONIX) (C9113) IV SCH ×2 (13:47→19:35)
--- NOTE | 2019-06-27 15:00 | ECGEPIP ---
[facility] Test Date: 2019-06-27 Pat Name: SERGIO HOGAN Department: Room: [place] [address] Gender: Male Content Architect: PHAN : 2000 Requested By: TY Velazquez Order Number: [id number] Reading MD: Efrain Weiss Measurements Intervals [place] Rate: 48 P: 46 NM: 125 QRS: 52 QRSD: 93 T: 29 QT: 471 QTc: 423 Interpretive Statements Marked sinus bradycardia Otherwise normal Rhythm converted from atrial fibrillation 06/26/19 Electronically Signed on 06-27-2019 14:59:58 EST by Efrain Weiss
[2019-06-28] VITALS (7 sets, daily range): BP systolic 122–166; BP diastolic 56–84
[2019-06-28] MEDS: guaiFENesin 200 MG TAB PO SCH ×4 (03:15→20:21)
[2019-06-28] MEDS: IPRATROPIUM 0.5MG/ALBUTEROL 2.5MG INH SOL UD 3ML (DUONEB)(J7620) INH SCH ×6 (04:00→19:37)
[2019-06-28] MEDS: SLF 3 ML SYR IV SCH ×3 (05:38→20:45)
[2019-06-28] MEDS: PANTOPRAZOLE 40MG INJ (PROTONIX) (C9113) IV SCH ×2 (08:14→20:45)
[2019-06-28] MEDS: LACTOBACILLUS ACIDOPHILUS CAP (BACID) PO SCH ×2 (08:14→20:45)
[2019-06-28] MEDS: predniSONE 20 MG TAB PO SCH (08:15)
[2019-06-28] MEDS: ENOXAPARIN 40 MG/0.4 ML SYRINGE (J1650) SC SCH (08:15)
[2019-06-28] MEDS: BENZONATATE 100 MG CAP PO SCH ×3 (08:15→20:20)
[2019-06-28] MEDS ORDERED: OMEPRAZOLE 20 MG CAP PO SCH (09:00)
--- NOTE | 2019-06-28 12:06 | IPNPDOC ---
Text Note Date of Service The patient was seen on 06/28/19. NOTE Subjective: -Had a rough day yesterday with indigestion/reflux and N/V --> much improved after protonix BID, stopped solumedrol and switched to pred taper -Feels much better this AM, cough also improving Objective: General: Was miserable from the nausea this AM, flushed Eye: PERRLA, EOMI, anicteric ENT: MMM, clear posterior oropharynx without evidence of exudates Neck: Supple, no JVD or palpable thyromegaly Chest Exam: Speaking in full sentences today, moving air well, no tachypnea, normal breathing rate Heart Exam: regular rhythm and rate, no murmurs Telemetry: NSR Abdomen Exam: Normal bowel sounds, Soft, no abdominal pain, no hepatosp lenomegaly Extremities: WWP, no edema Skin Exam: Flushed face and neck, Nl turgor, no rashes, no erythema or lesions Neuro Exam: Normal Speech, Strength at 5/5 X4 ext, Cranial Nerves 3-12 NL Psych Exam: Oriented x 3 labs: Reviewed. MYCOPLASMA IgM and IgG positive. Imaging: CXR with multifocal PNA, CTA PE protocol - with no PE and diffuse multifocal GGOs Assessment: 18 yo man whose medical history is only significant for active smoking and vaping, active member of the who presented with ~1 week of URI symptoms that progressed to incessant cough, myalgias, nausea, emesis, diarrhea, edgar fevers and shortness of breath and found to have multifocal PNA now placed on empiric zosyn with negative blood and sputum with mixed asmita per gram stain, now placed on steroids for severe hypoxemia and now confirmed mycoplasma PNA with c/f vaping related injury as well and respiratory failure now resolved. Sepsis 2/2 multifocal PNA, with a history of vaping and smoking: with fever, leukocytosis, tachycardia, tachypnea, imaging with edgar PNA. Now confirmed +mycoplasma with mixed GPCs on sputum -Switch IV azithromycin for Mycoplasma PNA to PO, sputum gram stain showed mixed GPCs, MRSA PCR negative -supplemental O2 to goal 92% if indicated, currently on room air -q4hPRN duonebs for SOB or coughing -BCx negative -sputum culture, stain showed mixed GPCs -negative urine for Strep and legionella -Positive IgM and IgG mycoplasma -Incentive spirometry -daily CBC, BMP -tylenol/NSAID for fever PRN -Discussed with Dr. Alcocer (pulm) who suspected this is likely vaping related and recommended adding 80Q6 IV solumedrol given respiratory distress and severe hypoxemia, so these were started on 06/22. Now on pred 40 with plan for prompt taper 40--> 30--> 20--> 10--> stop -Continue tessalon perls for cough -switch IV PPI BID to PO PPI once daily tomorrow AM Transient Afib: In the setting of ongoing severe infection. No history of Afib. Spontaneously resolved back to sinus. -continue telemetry -TTE wnl Smoking: -cessation counselling -declined patch N/V/D: -FOBT+ with stable H/H, likely gastritis, placed on scheduled PPI -zofran and promethazine PRN for nausea -s/p CT A/P without edgar abdominal pathology, lipase and LFTs were wnl DVT ppx: lovenox 40 QD Diet: regular VS,Fishbone, I+O VS, Fishbone, I+O Vital Signs Date Time Temp Pulse Resp B/P (MAP) Pulse Ox O2 Delivery O2 Flow Rate FiO2 06/28/19 08:00 97.3 52 18 126/72 (90) 99 Room Air 06/27/19 07:50 2.0 I&O- Last 24 Hours up to 6 AM 06/28/19 06:00 Intake Total 250 ml Output Total 200 ml Balance 50 ml TY MCCAULEY MD Jun 28, 2019 12:06
[2019-06-28] MEDS: AZITHROMYCIN 250 MG TAB PO SCH (14:58)
[2019-06-28] MEDS: IBUPROFEN 400 MG TAB PO PRN (20:48)
[2019-06-29] VITALS: BP 126/56
[2019-06-29] MEDS: guaiFENesin 200 MG TAB PO SCH ×2 (03:15→08:56)
[2019-06-29 04:00] VITALS: BP 137/70
[2019-06-29] MEDS: IPRATROPIUM 0.5MG/ALBUTEROL 2.5MG INH SOL UD 3ML (DUONEB)(J7620) INH SCH ×3 (07:58→11:17)
[2019-06-29 08:00] VITALS: BP 134/88
[2019-06-29] MEDS: predniSONE 20 MG TAB PO SCH (08:55)
[2019-06-29] MEDS: LACTOBACILLUS ACIDOPHILUS CAP (BACID) PO SCH (08:55)
[2019-06-29] MEDS: SLF 3 ML SYR IV SCH (08:55)
[2019-06-29] MEDS: ENOXAPARIN 40 MG/0.4 ML SYRINGE (J1650) SC SCH (08:56)
[2019-06-29] MEDS: BENZONATATE 100 MG CAP PO SCH ×2 (08:56→15:50)
[2019-06-29] MEDS: AZITHROMYCIN 250 MG TAB PO SCH (08:56)
[2019-06-29] MEDS ORDERED: PANTOPRAZOLE 40MG TAB (PROTONIX) PO SCH (09:00)
[2019-06-29 12:00] VITALS: BP 150/70
[2019-06-29] MEDS ORDERED: AZIT-12 PO ×2 (13:54→15:27)
[2019-06-29] MEDS ORDERED: PANT40TA3 PO ×2 (13:54→15:27)
[2019-06-29] MEDS ORDERED: PRED20TA PO ×2 (13:54→15:27)
[2019-06-29] MEDS ORDERED: BENZ-18 PO ×2 (13:54→15:27)
--- NOTE | 2019-06-29 13:59 | DS.PDOC ---
Discharge Summary General Date of Admission Jun 20, 2019 at 16:26 Date of Discharge 06/29/19 Discharge Summary Chief complaints: Shortness of breath and cough Final diagnosis Mycoplasma pneumonia Hypoxic respiratory failure History of present illness and Hospital course 18 yo man whose medical history is only significant for active smoking and vaping, active member of the who presented with ~1 week of URI symptoms that progressed to incessant cough, myalgias, nausea, emesis, diarrhea, edgar fevers and shortness of breath and found to have multifocal PNA was placed on empiric zosyn with negative blood and sputum with mixed asmita per gram stain, also placed on steroids for severe hypoxemia and now confirmed mycoplasma PNA with c/f vaping related injury as well and respiratory failure now with improving hypoxemia. He has been continued on azithromycin for Mycoplasma and. We given 7 more days of 500 mg daily. The patient had positive IgG and IgM for mycoplasma. He also was given a few doses of steroids and will taper down to 40 mg daily and will be discharged on 20 mg for the next 5 days. He was required to be seen by pulmonology as an outpatient. He has been called in detail regarding smoke cessation. He still is not at his baseline and gets short of breath on minimal activity and for that reason, he has been asked to avoid strenuous activities and he can return to his normal physical activity once reevaluated by PCP in 1 week. He is medically optimized and will be discharged to follow with PCP and pulmonary. Physical examination discharge General: Alert, oriented times place and person Eye: PERRLA, EOMI, anicteric ENT: MMM, clear posterior oropharynx without evidence of exudates Neck: Supple, no JVD or palpable thyromegaly Chest Exam: Speaking in full sentences today, moving air well, no tachypnea, normal breathing rate Heart Exam: regular rhythm and rate, no murmurs Telemetry: NSR Abdomen Exam: Normal bowel sounds, Soft, no abdominal pain, no hepatosplenomegaly Extremities: WWP, no edema Skin Exam: Flushed face and neck, Nl turgor, no rashes, no erythema or lesions Neuro Exam: Normal Speech, Strength at 5/5 X4 ext, Cranial Nerves 3-12 NL Psych Exam: Oriented x 3 Imaging: CXR with multifocal PNA, CTA PE protocol - with no PE and diffuse multifocal GGOs Medications. As per discharge reconciliation medication list Activity as tolerated Diet. Regular Follow-up appointments. PCP in 1 week, pulmonology in 1 week. Condition on discharge. Patient is medically optimized for discharge Discharge disposition: Home Total time spent on this discharge including coordination of care, review of chart documentation and actual contact is around 35 minutes Vital Signs/I&Os Vital Signs Date Time Temp Pulse Resp B/P (MAP) Pulse Ox O2 Delivery O2 Flow Rate FiO2 06/29/19 12:00 96.6 93 18 150/70 (96) 98 Room Air 06/27/19 07:50 2.0 I&O- Last 24 Hours up to 6 AM 06/29/19 06:00 Intake Total 1495 ml Output Total 300 ml Balance 1195 ml Microbiology Microbiology 06/27/19 Stool Occult Blood (RANJANA) - Final, Complete 06/27/19 Stool Lactoferrin - Final, Complete 06/20/19 Blood Culture - Final, Complete NO GROWTH AFTER 5 DAYS 06/20/19 Blood Culture - Final, Complete NO GROWTH AFTER 5 DAYS 06/20/19 Group A Streptococcus Screen (RANJANA) - Final, Complete 06/20/19 Respiratory Virus Panel (PCR) (RANJANA) - Final, Complete 06/20/19 Gram Stain - Final, Complete 06/20/19 Sputum Culture - Final, Complete Discharge Medications Scheduled Azithromycin (Azithromycin) 250 Mg Tablet, 500 MG PO DAILY Benzonatate (Benzonatate) 100 Mg Capsule, 100 MG PO TID Pantoprazole Sodium (Pantoprazole Sodium) 40 Mg Tablet.dr, 40 MG PO DAILY Prednisone (Prednisone) 20 Mg Tablet, 20 MG PO DAILY Allergies Coded Allergies: No Known Allergies (Unverified , 06/15/19) URIEL ANAYA MD Jun 29, 2019 13:59
[2019-06-29 16:00] VITALS: BP 150/90
== END 2019-06-29 16:00 | disposition home or self-care (01) | DRG 871 ==
LOC: M ED 12:02 → M ED INP 16:26 → M PCU 17:45
PROVIDERS: ADMIT Internal Medicine; ATTEND Internal Medicine
DX: A41.9 Sepsis, unspecified organism (principal); J15.7 Pneumonia due to Mycoplasma pneumoniae; F17.200 Nicotine dependence, unspecified, uncomplicated; Z79.899 Other long term (current) drug therapy; I48.91 Unspecified atrial fibrillation